=== PATIENT | male | born 2000 | race Hispanic/Latino ===

== ENCOUNTER 2023-05-01 09:28 | Emergency (ER) | payer OTHER ==
[~2023-05-01] VITALS: Ht 170.2 cm; Wt 72.7 kg
[2023-05-01 11:28] VITALS: O2SAT 97
[2023-05-01 11:35] VITALS: BP 135/66; TEMP 98.5
== END 2023-05-01 11:40 | disposition home or self-care (01) ==
LOC: EDBD 09:28 → M ED 09:28
DX: S06.0X0A Concussion without loss of consciousness, initial encounter (principal); S60.512A Abrasion of left hand, initial encounter; S60.511A Abrasion of right hand, initial encounter; M54.50 Low back pain, unspecified; V49.40XA Driver injured in collision with unspecified motor vehicles in traffic accident, initial encounter